=== PATIENT | female | born 1960 | race Caucasian/White ===

== ENCOUNTER → 2017-02-14 | Outpatient (CLI) | payer OTHER, BC ==
[~2017-02-14] MED LIST: ATV5 PO; CARI350T28 PO; IBUP-1050 PO
--- NOTE | 2017-02-14 10:36 | DIAGNOSTIC IMAGING REPORT ---
RIGHT KNEE 3 VIEWS CLINICAL HISTORY: PAIN AFTER FALL Right trauma. Pain. COMPARISON: None. DISCUSSION: Moderate degenerative change all major joint compartments. Small ossific avulsion lateral patella. No significant joint effusion. Prepatellar soft tissue edema. IMPRESSION: 1. Small avulsion lateral patella. 2. Soft tissue edema. Electronically signed by: Quique Rhoades M.D. 02/14/2017 10:35 AM Dictated Date/Time: 02/14/2017 10:34 AM
--- NOTE | 2017-02-14 10:41 | DIAGNOSTIC IMAGING REPORT ---
RIGHT WRIST W/NAVICULAR MIN 3 VIEWS CLINICAL HISTORY: PAIN AFTER FALL Right trauma. Pain. COMPARISON: None. DISCUSSION: The bones and joint spaces appear intact. There is no evidence of fracture, dislocation or bony disease. There is no evidence for soft tissue swelling. IMPRESSION: Negative study. Electronically signed by: Quique Rhoades M.D. 02/14/2017 10:40 AM Dictated Date/Time: 02/14/2017 10:39 AM
== END | disposition home or self-care (01) ==
LOC: C.RAD1850 10:02
PROVIDERS: ATTEND Nurse Practitioner Adult Health
DX: M25.531 Pain in right wrist (principal); M25.561 Pain in right knee; W19.XXXA Unspecified fall, initial encounter